=== PATIENT | male | born 1990 | race Caucasian/White ===

== ENCOUNTER 2019-04-30 18:59 | Emergency (ER) | payer OTHER ==
[~2019-04-30] VITALS: Ht 170.2 cm; Wt 138.3 kg
--- NOTE | 2019-04-30 19:05 | NUR ---
Patient BIB [facility]. A&O x4. c/o midsternal chest pain 7/10 on the pain scale that does not radiate per patient. Patient states that the pain was sudden and was not doing anything when it started. Friend at bedside states that the patient was out "for a couple of minutes" before being able to sit him up. Breathing even and unlabored. denies any cough or SOB at this time. Speech is clear and able to make needs known / follow commands. denies any / GI distress
--- NOTE | 2019-04-30 19:15 | NUR ---
Dr. Walls at bedside for MSE
--- NOTE | 2019-04-30 19:20 | NUR ---
XRAY AT BEDSIDE
[2019-04-30 19:24] LABS: BASOPHILS # (AUTO) 0.2 K/uL (0.0-8.0); BASOPHILS % (AUTO) 1.2 % (0.0-2.0); EOSINOPHILS # (AUTO) 0.3 K/uL (0.0-0.7); EOSINOPHILS % (AUTO) 2.1 % (0.0-7.0); HEMOGLOBIN 13.9 g/dL (12.5-16.3); LYMPHOCYTES # (AUTO) 3.5 K/uL (20.0-40.0); LYMPHOCYTES % (AUTO) 27.7 % (20.5-51.5); MEAN CORPUSCULAR HEMOGLOBIN 27.4 uug (23.8-33.4); MEAN CORPUSCULAR HGB CONC 33 g/dL (32.5-36.3); MEAN CORPUSCULAR VOLUME 83.1 fL (73.0-96.2); MONOCYTES # (AUTO) 0.8 K/uL (2.0-10.0); MONOCYTES % (AUTO) 6.6 % (0.0-11.0); NEUTROPHILS % (AUTO) 62.4 % (38.5-71.5); PLATELET COUNT (AUTO) 255 K/uL (152-348); RED BLOOD CELL COUNT(AUTO) 5.05 MIL/uL (4.06-5.63); WHITE BLOOD COUNT (AUTO) 12.8 K/uL (3.6-10.2)
[2019-04-30 19:40] LABS: BILIRUBIN,DIRECT 0.1 mg/dL (0.0-0.2); BILIRUBIN,TOTAL 0.3 mg/dL (0.2-1.0); POTASSIUM 3.6 mmol/L (3.5-5.1); TOTAL PROTEIN, SERUM 7.5 g/dL (6.4-8.2)
--- NOTE | 2019-04-30 19:50 | NUR ---
Urine collected and sent to lab
[2019-04-30 20:16] LABS: *AMPHETAMINE, URINE NEGATIVE (NEGATIVE); *BARBITURATE, URINE NEGATIVE (NEGATIVE); *CANNABINOID, URINE POSITIVE (NEGATIVE); *COCCAINE, URINE NEGATIVE (NEGATIVE); *OPIATE, URINE NEGATIVE (NEGATIVE); *PHENCYCLIDINE SCREEN,URINE NEGATIVE (NEGATIVE)
[2019-04-30] MEDS ORDERED: SWABABLE VALVE TRANSFER SET EA MC ONE (20:20)
[2019-04-30] MEDS ORDERED: IV NORMAL SALINE 250 ML IV ONE (20:20)
[2019-04-30] MEDS ORDERED: IOHEXOL 350 100 ML INFUS..BTL ONE (20:20)
--- NOTE | 2019-04-30 21:12 | NUR ---
CALLED [facility] AND SPOKE WITH KAITLIN
--- NOTE | 2019-04-30 21:18 | NUR ---
Dr. Walls on the phone with Dalton ALVARENGA
--- NOTE | 2019-04-30 22:06 | NUR ---
spoke with Carlie from [facility] to give clinicals
[2019-04-30] MEDS ORDERED: FENTANYL CITRATE 100 MCG/2 ML AMPUL IV ONE (22:45)
[2019-04-30] MEDS ORDERED: FENTANYL CITRATE 100 MCG/2 ML AMPUL ONE (22:52)
[2019-04-30] MEDS ORDERED: MORPHINE SULFATE 2 MG/1 ML DISP.SYRIN IV ONE (23:00)
--- NOTE | 2019-04-30 23:00 | NUR ---
per [facility] patient accepted but no room at this time
[2019-04-30] MEDS ORDERED: MORPHINE SULFATE 2 MG/1 ML DISP.SYRIN ONE (23:01)
--- NOTE | 2019-04-30 23:18 | NUR ---
Patient in bed A&O x4. breathing even and unlabored. NAD noted.
--- NOTE | 2019-04-30 23:35 | NUR ---
Called [facility] with updates. Per rep [facility] will be called for updates
--- NOTE | 2019-05-01 00:44 | NUR ---
Patient Tranfers to outside Facility Physician: Dr. Aleshia Echeverria Location: [facility] All belongings with patient.
== END 2019-05-01 00:44 | disposition short-term general hospital (02) ==
LOC: ER 19:01
DX: S90.32XA Contusion of left foot, initial encounter (principal); R07.89 Other chest pain; R55 Syncope and collapse; X58.XXXA Exposure to other specified factors, initial encounter; Y93.89 Activity, other specified; Y92.89 Other specified places as the place of occurrence of the external cause; Y99.8 Other external cause status
CPT/HCPCS: 36415; 71045; 71275; 73610; 73630; 80048; 80076; 80307; 84484; 85025; 85379; 93005 ×2; 93971; 96374; 99285; J2270; J3010; Q9967; 70030-TC; A4663; J7050